=== PATIENT | male | born 1965 | race Caucasian/White ===

== ENCOUNTER 2019-01-07 21:28 | Emergency (ER) | payer BC ==
[~2019-01-07] VITALS: Ht 180.3 cm; Wt 90.7 kg
[2019-01-07 21:40] VITALS: BP_SYST 192
--- NOTE | 2019-01-07 21:40 | NUR ---
2140 - Patient to ER bed 3 to gown for evaluation. Side rails up. Report given to RUFINO Ge.
--- NOTE | 2019-01-07 21:50 | NUR ---
Pt C/O lightheadedness and neck pain since 1600 this afternoon. Pt states he has hx of htn and has not been med compliant for the past few months. BP upon assessment was 197/127. Pt denies any chest pain, SOB, blurred vision, ringing in the ears or any other symptoms at this time. Will continue to monitor.
--- NOTE | 2019-01-07 22:03 | NUR ---
ER Dr. Puga at bedside examining patient.
[2019-01-07] MEDS ORDERED: LABETALOL 100 MG/ 20ML VIAL IVP ONE ×3 (22:15→23:45)
--- NOTE | 2019-01-07 22:31 | NUR ---
Patient transported to radiology via gurney, accompanied by rad staff.
--- NOTE | 2019-01-07 22:37 | NUR ---
Returned from radiology in stable condition
[2019-01-07 23:00] LABS: BASOPHILS % (AUTO) 0.3 % (0.0-2.0); EOSINOPHILS # (AUTO) 0.5 K/uL (0.0-0.4); EOSINOPHILS % (AUTO) 4.8 % (0.0-4.0); HEMATOCRIT 43.6 % (36-54); HEMOGLOBIN 15.3 g/dL (14.0-18.0); LYMPHOCYTES # (AUTO) 2.7 K/uL (1.0-5.5); LYMPHOCYTES % (AUTO) 23.9 % (20.5-51.5); MEAN CORPUSCULAR HEMOGLOBIN 31 pg (27-31); MEAN CORPUSCULAR HGB CONC 35 % (32-36); MEAN CORPUSCULAR VOLUME 87 fL (79.0-98.0); MONOCYTES # (AUTO) 0.6 K/uL (0.0-1.0); MONOCYTES % (AUTO) 4.9 % (1.7-9.3); NEUTROPHILS # (AUTO) 7.5 K/uL (1.8-7.7); NEUTROPHILS % (AUTO) 66.1 % (40.0-70.0); PLATELET COUNT (AUTO) 247 K/uL (130-430); RED CELL DISTRIBUTION WIDTH 13.4 % (9.0-15.0); WHITE BLOOD COUNT (AUTO) 11.3 K/uL (4.8-10.8)
[2019-01-07 23:08] LABS: CALCIUM 9.1 mg/dL (8.4-11.0); CREATININE 0.79 mg/dL (0.55-1.30); INR 1.1 (0.80-1.20); POTASSIUM 3.1 mmol/L (3.5-5.1); PROTHROMBIN TIME 10.9 SECS (9.5-12.5)
--- NOTE | 2019-01-07 23:08 | NUR ---
Pt's BP after medication is 176/104. Dr. Puga notified and ordered have been recieved.
[2019-01-07 23:13] LABS: ALBUMIN 3.5 g/dL (3.4-4.8); TOTAL BILIRUBIN 0.9 mg/dL (0.0-1.0)
--- NOTE | 2019-01-07 23:34 | NUR ---
After additional 10mg Labetalol BP is 175/105. Dr. Puga is aware
--- NOTE | 2019-01-07 23:57 | NUR ---
Pt has been medicated with another 10mg Labetalol for HTN. Will continue to monitor. Addendum: 01/08/19 at 0011 by [email or web address] BP is 174/98
[2019-01-08] MEDS ORDERED: ACETAMINOPHEN 325 MG TABLET PO ONE
--- NOTE | 2019-01-08 | NUR ---
Pt is sleeping in bed, no acute distress noted at this time
[2019-01-08 00:24] LABS: BILIRUBIN,URINE NEGATIVE (NEGATIVE); BLOOD, URINE NEGATIVE (NEGATIVE); CLARITY/URINE CLEAR (CLEAR); COLOR,URINE YELLOW (YELLOW); GLUCOSE,URINE NEGATIVE (NEGATIVE); KETONES,URINE NEGATIVE (NEGATIVE); LEUKOCYTE ESTERASE ,URINE NEGATIVE (NEGATIVE); NITRITE, URINE NEGATIVE (NEGATIVE); PROTEIN URINE TRACE (NEGATIVE); UROBILINOGEN,URINE 0.2 (0.2-1.0)
[2019-01-08 00:29] LABS: BACTERIA,URINE FEW /HPF (None Seen); RBC,URINE 0-3 /HPF (0-3); WBC,URINE 0-3 /HPF (0-3)
[2019-01-08] MEDS ORDERED: LISINOPRIL 10 MG TABLET (PRINIVIL) PO ONE (00:30)
[2019-01-08] MEDS ORDERED: METOPROLOL SUCCINATE 25 MG TAB.SR.24H (TOPROL XL) PO ONE ×2 (00:30→00:53)
[2019-01-08] MEDS ORDERED: METOPROLOL TARTRATE 25 MG TABLET ONE (00:39)
[2019-01-08] MEDS ORDERED: hydrALAZINE HCL 20 MG/ML VIAL IVP ONE (01:00)
--- NOTE | 2019-01-08 01:00 | NUR ---
Pt is sleeping in bed, no acute distress noted at this time
[2019-01-08 02:20] VITALS: BP_SYST 161
--- NOTE | 2019-01-08 02:20 | NUR ---
Patient given written and verbal discharge instructions and verbalizes understanding. ER MD discussed with patient the results and treatment provided. Patient in stable condition. ID arm band removed. IV catheter removed intact and dressing applied, no active bleeding. Rx of Metoprolol and Hydrochlorothiazide given. Patient educated on pain management and to follow up with PMD. Pain Scale 0/10. Opportunity for questions provided and answered. Medication side effect fact sheet provided.
[2019-01-08] MEDS ORDERED: METOPROLOL SUCCINATE 25 MG TAB.SR.24H (TOPROL XL) PO SCH (09:00)
== END 2019-01-08 02:20 | disposition home or self-care (01) ==
LOC: SED 21:28
DX: R51 Headache (principal); I10 Essential (primary) hypertension
CPT/HCPCS: 36415; 70450; 71045; 80053; 81000; 84484; 85025; 85610; 85730; 93005; 96374; 96375; 96376; 99284; J0360; J3490